=== PATIENT | male | born 1975 | race Hispanic/Latino ===

== ENCOUNTER 2019-08-10 12:16 | Emergency (ER) | payer OTHER ==
[~2019-08-10] VITALS: Ht 172.7 cm; Wt 93.2 kg
[2019-08-10] MEDS ORDERED: NAPR250T4 PO (12:30)
[2019-08-10] MEDS ORDERED: NS 1,000 ML IV ONE (12:45)
[2019-08-10] MEDS ORDERED: MORPHINE 2 MG/ML 1ML VIAL (J2270) IV PRN (12:45)
[2019-08-10 13:04] LABS: BASO # 0.1 10^3/uL (0.0-0.2); BASO % 0.9 % (0.0-1.0); EOS # 0.4 10^3/uL (0.0-0.5); EOS % 6.6 % (0.0-3.0); HEMOGLOBIN 14.2 g/dl (13.5-17.5); LYMPH % 29.5 % (24.0-44.0); MEAN CORPUSCULAR HEMOGLOBIN 29.4 pg (27.0-33.0); MONO # 0.5 10^3/uL (0.0-0.8); MONO % 7.9 % (0.0-5.0); NEUTROPHILS # 3.6 10^3/uL (1.5-8.5); NEUTROPHILS % 54.6 % (36.0-66.0); PLATELET COUNT, AUTOMATED 317 10^3/uL (150-450); RED BLOOD COUNT 4.83 10^6/uL (4.30-6.10); WHITE BLOOD COUNT 6.6 10^3/uL (4.0-10.0)
[2019-08-10] MEDS ORDERED: ISOVUE-370 76% 100ML VIAL (Q9967) As Ordered ONE (13:11)
[2019-08-10 13:15] LABS: INR 1.01
[2019-08-10 13:16] LABS: PARTIAL THROMBOPLASTIN TIME 28.4 SECONDS (25.0-38.4)
[2019-08-10 13:32] LABS: ALBUMIN 4.1 GM/DL (3.2-5.2); ALT/SGPT 33 U/L (12-78); AMYLASE 63 U/L (25-115); BILIRUBIN,DIRECT < 0.1 MG/DL (0.0-0.2); BILIRUBIN,TOTAL 0.3 MG/DL (0.2-1.0); CK-MB VALUE MASS < 1.0 NG/ML (<3.6); CPK CREATINE PHOSPHOKINASE 213 U/L (39-308); LIPASE 111 U/L (73-393); MB/CK RELATIVE INDEX 0.47 (< OR =4); TOTAL PROTEIN 7.7 GM/DL (6.4-8.2); TROPONIN I < 0.02 NG/ML (< 0.10)
--- NOTE | 2019-08-10 13:40 | REP ---
Clinical: Trauma . Comparison: None . Findings: The ventricles, sulci, and cisterns are normal in position and appearance. Reese-white differentiation is maintained. No acute intracranial hemorrhage, mass/mass effect, pathology or trauma/injury. No evidence for acute infarction. No extra-axial fluid collection. Calvarium is intact. Paranasal sinuses and mastoid air cells are clear. Impression: Normal noncontrast head CT. No evidence for acute intracranial pathology or trauma/injury. Electronically Signed by Kyle Kurtz MD 08/10/2019 01:32 P
--- NOTE | 2019-08-10 13:42 | REP ---
Clinical: Trauma . Technique: Axial noncontrast images from the skull base to the thoracic inlet with coronal and sagittal re-formations Findings: Straightening of normal lordosis is nonspecific. Alignment is maintained. Focal moderate degenerative disc osteophyte complex at C5-6 and to a lesser extent C4-5 and C6-7 includes osteophytosis, endplate sclerosis, and elements of disc space narrowing. Remainder of the examination is relatively age-appropriate. Spinal canal is patent. Neural foramen are patent. Posterior elements and spinous processes are intact. Paravertebral soft tissues are normal. Impression: Elements of degenerative spondylosis. No acute fracture / compression injury or subluxation. Electronically Signed by Kyle Kurtz MD 08/10/2019 01:33 P
--- NOTE | 2019-08-10 13:44 | REP ---
Clinical: Trauma. Technique: Axial contrast enhanced images from the thoracic inlet to the upper abdomen with coronal and sagittal re-formations using 100 ml Isovue 370 intravenous contrast material. Findings: The bilateral lung brewer are well-aerated and without consolidation/contusion, effusion, or pneumothorax. Tracheobronchial tree is patent. Pulmonary vasculature including thoracic aorta appear normal and without evidence for injury. Mediastinum is unremarkable. No adenopathy. The the osseous structures are intact. Impression: Normal contrast enhanced chest CT. No evidence for acute trauma/injury or obvious pathology. Electronically Signed by Kyle Kurtz MD 08/10/2019 01:36 P
--- NOTE | 2019-08-10 13:47 | REP ---
Clinical: Trauma. Technique: Axial contrast enhanced images from the lung bases to the pubic symphysis with coronal and sagittal re-formations using 100 ml Isovue 370 intravenous contrast material. Findings: No evidence for solid organ injury. Liver, spleen, pancreas, gallbladder, bilateral adrenal glands and kidneys are normal. The enteric system is without obstruction or acute inflammatory process. Pelvis demonstrates normal bladder and age appropriate prostate/seminal vesicles. No ascites. No free air. No adenopathy. Abdominal aorta and vasculature appear normal/intact. Musculoskeletal structures are intact. Impression: Normal contrast enhanced CT of the abdomen and pelvis. No evidence for acute pathology or trauma/injury. Electronically Signed by Kyle Kurtz MD 08/10/2019 01:37 P
[2019-08-10 14:15] VITALS: BP 129/90
[2019-08-10] MEDS ORDERED: KETOROLAC 30 MG/ML VIAL (J1885) IV ONE (14:15)
== END 2019-08-10 14:27 | disposition home or self-care (01) ==
LOC: M ED 12:16
DX: R10.11 Right upper quadrant pain (principal); V48.5XXA Car driver injured in noncollision transport accident in traffic accident, initial encounter; G47.33 Obstructive sleep apnea (adult) (pediatric); M25.78 Osteophyte, vertebrae; M50.323 Other cervical disc degeneration at C6-C7 level; M50.823 Other cervical disc disorders at C6-C7 level; Z88.0 Allergy status to penicillin; Z88.1 Allergy status to other antibiotic agents; Z79.1 Long term (current) use of non-steroidal anti-inflammatories (NSAID)
CPT/HCPCS: 36415; 70450; 71260; 72125; 74177; 80047; 80076; 81001; 82150; 82550; 82553; 83605; 83690; 84484; 85025; 85610; 85730; 86850; 86900; 86901; 93041; 94760; 96361; 96374; 96375; 99285; J1885; J2270; Q9967